=== PATIENT | female | born 2000 | race Caucasian/White ===

== ENCOUNTER → 2019-01-16 | Emergency (ER) | payer SELFPAY, OTHER ==
[2019-01-16] MEDS: IBUPROFEN 600 MG TAB PO (10:50)
[2019-01-16] MEDS: TRIMETHOPRIM/SULFAMETHOX (DS) TAB PO (10:50)
[2019-01-16] MEDS: CEFTRIAXONE 1 GM INJ IM (10:51)
[2019-01-16] MEDS: LIDOCAINE 1% (MDV) 20 ML INJ SC (10:51)
== END | disposition home or self-care (01) ==
LOC: FTE 10:24
DX: L03.115 Cellulitis of right lower limb (principal)
CPT/HCPCS: 96372; 99284-25